=== PATIENT | female | born 2005 | race Two or more races ===

== ENCOUNTER 2024-10-23 21:56 | Inpatient (IN) ==
--- NOTE | 2024-10-23 22:50 | Emergency Department Note ---
Impression & Plan Leukocytosis Admission ED Provider Note HPI: History obtained from patient. The patient is a 18-year-old female with no stated past medical history, presents the emergency department with a chief complaint of left upper back pain, sore throat, chills, and shortness of breath. Patient states that the symptoms happened acutely about 4 hours prior to arrival to the ED. patient states that she also had some urinary "pressure" this morning. Patient states she has some pain in her lower back. Patient states she also has some pain in the area of the left upper back between the thoracic spine and the left scapula. Patient states at times she feels that she cannot take a full breath. On arrival here to the ED the patient is tachycardic but otherwise hemodynamically stable, she is saturating well on room air on arrival. ROS: - Per HPI Differential Diagnosis: Urinary tract infection, pyelonephritis, cystitis, pulmonary embolism, costochondritis, pneumothorax, pneumonia, viral upper respiratory infection, strep pharyngitis, amongst other potential pathologies. *Outpatient medications and allergy history reviewed. PE: General: Alert HEENT: Normocephalic, trachea midline, posterior pharynx is erythematous without any exudate or tonsillar swelling Eyes: Extraocular eye movement is intact, no scleral erythema Pulmonary: Clear to auscultation bilaterally, no wheezing Cardio: Tachycardic rate with regular rhythm GI: Abdomen is soft to palpation : No suprapubic tenderness MSK: No evidence of trauma or malformation of the extremities, no edema Skin: No evidence of rash Neuro: Alert, no focal deficits Psychiatric: Cooperative INDEPENDENT INTERPRETATIONS: information systems technician: (As interpreted by myself): - An order was placed for continuous cardiac monitoring - Patient was noted to be in sinus rhythm with a rate of 120 EKG: (As interpreted by myself): Rate: 124 Rhythm: Sinus tachycardia Intervals: Within normal limits ST changes: No ST elevation Time: 2258 Chest x-ray: (As interpreted by myself): No focal infiltrate Interventions provided in ED: -IV fluid bolus, IV Toradol, IV morphine, IV Zofran, potassium chloride Medical Decision Making: IV was established and lab work obtained, patient was placed on safety inspector. Patient was given IV fluid bolus as well as IV analgesia. Lab work shows a leukocytosis of 16.83, hemoglobin is normal, platelet count is normal, D-dimer was obtained that is within normal limits. CMP shows hypokalemia 3.2, bilirubin is mildly elevated at 1.4 without any transaminitis, troponin is negative, lipase is normal. Urinalysis shows trace ketones and mild hematuria with some epithelial cells. There is no obvious evidence of infection. Viral panel testing was obtained and is negative. [place] testing is negative, strep testing is negative. Chest x-ray does not show any evidence of focal infiltrate per my interpretation however radiology interpretation does suggest bronchitis with possibly pneumonitis. Her tachycardia did downtrend here in the ED with IV fluids and analgesia. On my reassessment the patient states that the pain in her low back was bothering her more throughout the afternoon, following our discussion and CT imaging of the abdomen pelvis was ordered and obtained. This does not show any acute/critical findings. On reassessment following CT imaging results, the patient states that her lower back discomfort is worse and she is having some myalgias. Patient remains tachycardic now in the 110s. Given her recurrent symptoms and unclear source for her symptoms, blood cultures were drawn and the patient was treated with IV cefepime and IV azithromycin. Patient was given a dose of IV Tylenol. At this time I do feel the patient would benefit from admission for further workup and follow-up on blood cultures and urine culture. Patient is in agreement to this plan as is her mother at the bedside. I discussed the patient's presentation with the on-call hospitalist, Dr. Girard, and the patient was placed for admission in stable condition. Consultants/Discussions held with other healthcare providers: -Hospitalist, Dr. Girard Disposition discussion held by myself with: -Patient and patient's mother at the bedside Diagnosis: 1. Leukocytosis, acute 2. Sinus tachycardia 3. Lower back pain, acute 4. Dyspnea, acute 5. Pneumonitis/bronchitis, acute Disposition: Admission Arash Gutierrez DO Emergency Medicine Past Med/Surg History Problem List (Updated 10/24/24 @ 02:57 by Arash Gutierrez DO) Leukocytosis (Acute) Social History Smoking Status: Never smoker Tobacco Type: E-cigarettes / Vaping Preferred Language: Estonian Feels Safe at Home: Yes Results & Data (ED) Vital Signs Vital Signs - 24 hr 10/23/24 22:00 10/23/24 23:00 10/23/24 23:17 Temperature 37.5 C Temperature Source Oral Pulse Rate 137 H 120 H 125 H Pulse Rate [Right Finger] Respiratory Rate 16 16 Respiratory Effort / Characteristics Non-Labored Spontaneous Respiratory Depth Normal Respiratory Pattern Blood Pressure 146/82 H Blood Pressure [Right Arm] Blood Pressure Mean 103 Blood Pressure Mean [Right Arm] Pulse Oximetry 99 99 Oxygen Delivery Method Room Air Room Air Sepsis Recent Fever Within 48 Hours No Sepsis New/Unexplained Change in Mental Status No Sepsis Action Taken by Nursing No Action Required 10/23/24 23:25 10/24/24 00:00 10/24/24 02:08 Temperature 36.8 C Temperature Source Oral Pulse Rate Pulse Rate [Right Finger] 115 H 126 H 108 H Respiratory Rate 21 16 17 Respiratory Effort / Characteristics Non-Labored Spontaneous Non-Labored Spontaneous Respiratory Depth Normal Normal Respiratory Pattern Regular Blood Pressure Blood Pressure [Right Arm] 166/96 H 138/93 119/75 Blood Pressure Mean Blood Pressure Mean [Right Arm] 119 108 89 Pulse Oximetry 100 98 98 Oxygen Delivery Method Room Air Room Air Room Air Sepsis Recent Fever Within 48 Hours Sepsis New/Unexplained Change in Mental Status Sepsis Action Taken by Nursing Laboratory Data 10/23/24 23:01 10/23/24 23:01 Lab Results 10/23/24 10/23/24 Range/Units 23:01 Unknown WBC 16.83 H (4.8-10.8) K/ul RBC 5.17 (4.20-5.40) M/uL Hgb 12.7 (12.0-16.0) g/dl Hct 41.0 (37.0-47.0) % MCV 79.3 L (80.0-100.0) fL MCH 24.6 L (25.0-34.0) pg MCHC 31.0 L (32.0-36.0) g/dL RDW Std Deviation 47.9 H (36.4-46.3) fL RDW Coeff of Jorge 16.8 H (11.5-14.5) % Plt Count 282 (130-400) K/uL MPV 9.7 (9.4-12.4) fL Immature Gran % (Auto) 0.4 % Neut % (Auto) 90.2 % Lymph % (Auto) 3.7 % [place] % (Auto) 5.2 % Eos % (Auto) 0.3 % Baso % (Auto) 0.2 % Neut # (Auto) 15.18 H (1.40-6.50) K/uL Lymph # (Auto) 0.63 L (1.20-3.40) K/uL [place] # (Auto) 0.87 H (0.11-0.59) K/uL Eos # (Auto) 0.05 (0.00-0.50) K/uL Baso # (Auto) 0.03 (0.00-0.20) K/uL Immature Gran # (Auto) 0.07 (0.01-0.20) K/uL Polychromasia 1+ Ovalocytes 2+ PT 10.5 (9.0-12.0) Seconds INR 1.0 (0.9-1.1) D-Dimer 240 (0-500) ug/L FEU Sodium 138 (136-145) mmol/L Potassium 3.2 L (3.5-5.1) mmol/L Chloride 106 (98-107) mmol/L Carbon Dioxide 25 (21-32) mmol/L Anion Gap 7 (3-11) BUN 11 (6-23) mg/dl Creatinine 0.84 (0.6-1.2) mg/dl Est Cr Clr Drug Dosing 112.5 ml/min eGFR 101.96 BUN/Creatinine Ratio 13.1 (10-20) Glucose 116 H (70-99(Fasting)) mg/dl Calcium 9.7 (8.6-10.3) mg/dl Total Bilirubin 1.4 H (0.2-1.0) mg/dl AST 19 (13-39) U/L ALT 16 (7-52) U/L Alkaline Phosphatase 82 (34-104) U/L Troponin I High Sens 3.8 (0-14) pg/ml Total Protein 8.0 (6.0-8.3) gm/dl Albumin 4.8 (3.4-5.0) gm/dl Globulin 3.2 (2.5-4.0) gm/dl Albumin/Globulin Ratio 1.5 (0.9-2) Lipase 23 (11-82) U/L Urine Color Yellow Urine Appearance Clear (Clear) Urine pH 8.5 H (4.5-7.5) Ur Specific [place] 1.029 (1.000-1.030) Urine Protein Trace H (Negative) Urine Glucose (UA) Negative (Negative) Urine Ketones Trace H (Negative) Urine Blood Negative (Negative) Urine Nitrite Negative (Negative) Urine Bilirubin Negative (Negative) Urine Urobilinogen Positive H (Negative) Ur Leukocyte Esterase Negative (Negative) Urine WBC (Auto) 0-5 (0-5) /hpf Urine RBC (Auto) 3-5 H (0-2) /hpf U Hyaline Cast (Auto) 0-2 (0-2) /lpf U Epithel Cells (Auto) 3-5 H (0-2) /hpf Urine Bacteria (Auto) None Seen (None Seen) Urine Test Negative (Negative) Adenovirus (PCR) Not Detected (NotDetected) B. pertussis DNA (PCR) Not Detected (NotDetected) B.parapertussis DNA PCR Not Detected (NotDetected) C. pneumoniae DNA (PCR) Not Detected (NotDetected) Coronavirus OC43 (PCR) Not Detected (NotDetected) Coronavirus HKU1 (PCR) Not Detected (NotDetected) Coronavirus 229E (PCR) Not Detected (NotDetected) SARS-CoV-2 (PCR) Not Detected (NotDetected) Coronavirus NL63 (PCR) Not Detected (NotDetected) Monoscreen Negative (Negative) Human Metapneumovir PCR Not Detected (NotDetected) Influenza Type A (PCR) Not Detected (NotDetected) Influenza Type B (PCR) Not Detected (NotDetected) M. pneumoniae (PCR) Not Detected (NotDetected) Parainfluenza 1 (PCR) Not Detected (NotDetected) Parainfluenza 2 (PCR) Not Detected (NotDetected) Parainfluenza 3 (PCR) Not Detected (NotDetected) Parainfluenza 4 (PCR) Not Detected (NotDetected) RSV (PCR) Not Detected (NotDetected) Entero/Rhino (PCR) Not Detected (NotDetected) Group A Strep (PCR) NOT DETECTED (NotDetected) Administered Medications Discontinued Medications Sodium Chloride (Nss) 1,000 mls @ 999 mls/hr IV .Q1H1M ONE Stop: 10/23/24 23:47 Last Infusion: 10/23/24 23:58 Dose: Infused Documented By: Admin: 10/23/24 23:04 Dose: 999 mls/hr Documented By: MARKELL Sodium Chloride (Nss) 500 mls @ 999 mls/hr IV .Q31M ONE Stop: 10/24/24 00:23 Last Infusion: 10/24/24 00:58 Dose: Infused Documented By: Admin: 10/24/24 00:11 Dose: 999 mls/hr Documented By: MARKELL Ioversol (Optiray 320 100ml) 92 ml IV ONCE ONE Stop: 10/24/24 01:09 Last Admin: 10/24/24 01:09 Dose: 92 ml Documented By: HERVE Ketorolac Tromethamine (Ketorolac Tromethamine 15 Mg/Ml Vial) 10 mg IV NOW ONE Stop: 10/23/24 22:50 Last Admin: 10/23/24 23:04 Dose: 10 mg Documented By: MARKELL Morphine Sulfate (Morphine Sulfate 4 Mg/Ml 1 Ml Carp\\Vial) 4 mg IV NOW STA Stop: 10/24/24 00:04 Last Admin: 10/24/24 00:11 Dose: 4 mg Documented By: MARKELL Ondansetron HCl (Ondansetron Inj 2 Mg/Ml 2 Ml Vial) 4 mg IV NOW STA Stop: 10/24/24 00:04 Last Admin: 10/24/24 00:10 Dose: 4 mg Documented By: MARKELL Potassium Chloride (Potassium Chloride Crtab 20 Meq Tabcr) 40 meq PO NOW STA Stop: 10/24/24 00:05 Last Admin: 10/24/24 00:11 Dose: 40 meq Documented By: MARKELL Imaging Data Radiologist's Impression: Chest X-Ray 10/23/24 22:48 Exam(s): XR CXR 1 VIEW EXAM: XR Chest, 1 View CLINICAL HISTORY: Reason for exam: Chest pain, nonspecific. TECHNIQUE: Frontal view of the chest. COMPARISON: No relevant prior studies available. FINDINGS: Lungs: There is mild to moderate peribronchial thickening of the central bronchi with increased interstitial opacities. No consolidation. Pleural space: Unremarkable. No pneumothorax. Heart: Unremarkable. No cardiomegaly. Mediastinum: Unremarkable. Normal mediastinal contour. Bones/joints: Unremarkable. No acute fracture. IMPRESSION: Findings concerning for bronchitis with pneumonitis, which may be infectious or inflammatory etiologies. No consolidation or pleural effusion. Electronically signed by: Aaliyah Swann MD 10/24/24 02:33 AM Abdomen/Pelvis CT 10/24/24 00:52 EXAM: CT abd pelvis IV con only CLINICAL HISTORY: Lower back pain, urinary pressure pt denies preg 92 cc opti 320 TECHNIQUE: Contiguous axial images were obtained from the level of the diaphragm to the pubic symphysis with intravenous contrast . Coronal and sagittal reconstructions were likewise performed and indicated to increase the sensitivity for detecting clinically relevant pathology. If IV contrast material had not been administered, the likelihood of detecting abnormalities relevant to the patient's condition would have been substantially decreased. CT scan was performed according to ALARA (as low as reasonable achievable). COMPARISON: No comparison study FINDINGS: The visualized lung bases are clear. The liver is normal in size and attenuation. No focal liver lesions are seen. There is no intra or extrahepatic biliary ductal dilatation. Hepatic vasculature is patent. The gallbladder is present. The spleen, pancreas, and adrenal glands are unremarkable. The kidneys are normal in size and attenuation. There is no hydronephrosis or perinephric fat stranding. No renal calculi or renal masses are identified. The ureters are normal in caliber and no ureteral calculi are seen. The bladder is normal in contour. Pelvic viscera are unremarkable.Intrauterine contraceptive device in situ. No focal or diffuse bowel wall thickening or evidence of bowel obstruction is identified. The appendix is visualized in the right lower quadrant and appears within normal limits. Abdominal and pelvic vasculature is patent. No adenopathy or fluid collections are seen. No aggressive appearing osseous lesions are identified. IMPRESSION: 1.No acute abnnormality in the present study. Electronically signed by Reinier Pires 10-24-2024 02:36 AM Discharge Plan Visit Data Chief Complaint: Flu Like Symptoms Stated Complaint: SORE THROAT, CHILLS, FEVER, BACK PAIN ED Provider: Arash Gutierrez Discharge Problem: Leukocytosis Forms Stand Alone Forms: My [facility] Referrals Referrals: Patti Hanley, [Primary Care Provider] -
[2024-10-23] MEDS: KETOROLAC TROMETHAMINE 15 MG/ML VIAL IV ONE (23:04)
[2024-10-23] MEDS: SODIUM CHLORIDE 0.9% 1,000 ML IV ONE (23:04)
[2024-10-23 23:23] LABS: Hemoglobin 12.7 g/dl (12.0-16.0); Mean Corpuscular Hemoglobin 24.6 pg (25.0-34.0); Mean Corpuscular Volume 79.3 fL (80.0-100.0); Mean Platelet Volume 9.7 fL (9.4-12.4); Platelet Count 282 K/uL (130-400); RDW Coefficient of Variation 16.8 % (11.5-14.5); RDW Standard Deviation 47.9 fL (36.4-46.3); Red Blood Count 5.17 M/uL (4.20-5.40); White Blood Count 16.83 K/ul (4.8-10.8)
[2024-10-23 23:27] LABS: Appearance Urine Clear (Clear); Bacteria Urine Automated None Seen (None Seen); Bilirubin Urine Negative (Negative); Blood Urine Negative (Negative); Cast Urine Automated 0-2 /lpf (0-2); Color Urine Yellow; Glucose Urine UA Negative (Negative); Ketones Urine Trace (Negative); Leukocyte Esterase Urine Negative (Negative); Nitrite Urine Negative (Negative); Protein Urine Trace (Negative); Specific Gravity Urine 1.029 (1.000-1.030); Urobilinogen Urine Positive (Negative); WBC Urine Automated 0-5 /hpf (0-5); pH Urine 8.5 (4.5-7.5)
[2024-10-23 23:28] LABS: Adenovirus PCR Not Detected (NotDetected); Bordetella parapertussis PCR Not Detected (NotDetected); Bordetella pertussis PCR Not Detected (NotDetected); Chlamydia pneumoniae PCR Not Detected (NotDetected); Coronavirus 229E PCR Not Detected (NotDetected); Coronavirus CoV-2 (COVID19)PCR Not Detected (NotDetected); Coronavirus HKU1 PCR Not Detected (NotDetected); Coronavirus NL63 PCR Not Detected (NotDetected); Coronavirus OC43PCR Not Detected (NotDetected); Human Metapneumovirus PCR Not Detected (NotDetected); Influenza A PCR Not Detected (NotDetected); Influenza B PCR Not Detected (NotDetected); Mycoplasma pneumoniae PCR Not Detected (NotDetected); Parainfluenza Virus 1 PCR Not Detected (NotDetected); Parainfluenza Virus 2 PCR Not Detected (NotDetected); Parainfluenza Virus 3 PCR Not Detected (NotDetected); Parainfluenza Virus 4 PCR Not Detected (NotDetected); Respiratory Syncytial VirusPCR Not Detected (NotDetected); Rhinovirus/Enterovirus PCR Not Detected (NotDetected)
[2024-10-23 23:29] LABS: Pregnancy Test, Urine Negative (Negative)
[2024-10-23 23:41] LABS: Alanine Aminotransferase 16 U/L (7-52); Albumin Globulin Ratio 1.5 (0.9-2); Albumin Level 4.8 gm/dl (3.4-5.0); Alkaline Phosphatase 82 U/L (34-104); Anion Gap 7 (3-11); Aspartate Aminotransferase 19 U/L (13-39); BUN Creatinine Ratio 13.1 (10-20); Bilirubin,Total 1.4 mg/dl (0.2-1.0); Blood Urea Nitrogen 11 mg/dl (6-23); Calcium 9.7 mg/dl (8.6-10.3); Carbon Dioxide 25 mmol/L (21-32); Chloride 106 mmol/L (98-107); Creatinine Clr Calc Pharmacy 112.5 ml/min; Globulin 3.2 gm/dl (2.5-4.0); Glucose 116 mg/dl (70-99(Fasting)); Lipase 23 U/L (11-82); Potassium 3.2 mmol/L (3.5-5.1); Sodium 138 mmol/L (136-145)
[2024-10-23 23:47] LABS: Troponin I High Sensitivity 3.8 pg/ml (0-14)
[2024-10-23 23:51] LABS: Basophils # (auto) 0.03 K/uL (0.00-0.20); Basophils % (auto) 0.2 %; Eosinophils # (auto) 0.05 K/uL (0.00-0.50); Eosinophils % (auto) 0.3 %; Immature Granulocytes # (auto) 0.07 K/uL (0.01-0.20); Immature Granulocytes % (auto) 0.4 %; Lymphocytes # (auto) 0.63 K/uL (1.20-3.40); Lymphocytes % (auto) 3.7 %; Monocytes # (auto) 0.87 K/uL (0.11-0.59); Monocytes % (auto) 5.2 %; Neutrophils # (auto) 15.18 K/uL (1.40-6.50); Neutrophils % (auto) 90.2 %; Ovalocytes 2+; Polychromasia 1+
[2024-10-23 23:58] LABS: D Dimer 240 ug/L FEU (0-500); Prothrombin Time 10.5 Seconds (9.0-12.0)
[2024-10-24] MEDS: ONDANSETRON INJ 2 MG/ML 2 ML VIAL IV STA (00:10)
[2024-10-24] MEDS: POTASSIUM CHLORIDE CRTAB 20 MEQ TABCR PO STA (00:11)
[2024-10-24] MEDS: SODIUM CHLORIDE 0.9% 500 ML IV ONE (00:11)
[2024-10-24] MEDS: MoRPHine SULFATE 4 MG/ML 1 ML CARP\\VIAL IV STA (00:11)
[2024-10-24] MEDS: OPTIRAY 320 100ml IV ONE (01:09)
--- NOTE | 2024-10-24 02:34 | XRay Report ---
Exam(s): XR CXR 1 VIEW EXAM: XR Chest, 1 View CLINICAL HISTORY: Reason for exam: Chest pain, nonspecific. TECHNIQUE: Frontal view of the chest. COMPARISON: No relevant prior studies available. FINDINGS: Lungs: There is mild to moderate peribronchial thickening of the central bronchi with increased interstitial opacities. No consolidation. Pleural space: Unremarkable. No pneumothorax. Heart: Unremarkable. No cardiomegaly. Mediastinum: Unremarkable. Normal mediastinal contour. Bones/joints: Unremarkable. No acute fracture. IMPRESSION: Findings concerning for bronchitis with pneumonitis, which may be infectious or inflammatory etiologies. No consolidation or pleural effusion. Electronically signed by: Aailyah Swann MD 10/24/24 02:33 AM
--- NOTE | 2024-10-24 02:36 | CT Scan Report ---
EXAM: CT abd pelvis IV con only CLINICAL HISTORY: Lower back pain, urinary pressure pt denies preg 92 cc opti 320 TECHNIQUE: Contiguous axial images were obtained from the level of the diaphragm to the pubic symphysis with intravenous contrast . Coronal and sagittal reconstructions were likewise performed and indicated to increase the sensitivity for detecting clinically relevant pathology. If IV contrast material had not been administered, the likelihood of detecting abnormalities relevant to the patient's condition would have been substantially decreased. CT scan was performed according to ALARA (as low as reasonable achievable). COMPARISON: No comparison study FINDINGS: The visualized lung bases are clear. The liver is normal in size and attenuation. No focal liver lesions are seen. There is no intra or extrahepatic biliary ductal dilatation. Hepatic vasculature is patent. The gallbladder is present. The spleen, pancreas, and adrenal glands are unremarkable. The kidneys are normal in size and attenuation. There is no hydronephrosis or perinephric fat stranding. No renal calculi or renal masses are identified. The ureters are normal in caliber and no ureteral calculi are seen. The bladder is normal in contour. Pelvic viscera are unremarkable.Intrauterine contraceptive device in situ. No focal or diffuse bowel wall thickening or evidence of bowel obstruction is identified. The appendix is visualized in the right lower quadrant and appears within normal limits. Abdominal and pelvic vasculature is patent. No adenopathy or fluid collections are seen. No aggressive appearing osseous lesions are identified. IMPRESSION: 1.No acute abnnormality in the present study. Electronically signed by Reinier Pires 10-24-2024 02:36 AM
[2024-10-24] MEDS ORDERED: AZITHROMYCIN 500 MG VIAL IV ONE (02:43)
--- NOTE | 2024-10-24 02:57 | History & Physical Report ---
Date of Service October 24, 2024 Assessment & Plan (1) Sepsis: Plan: -Fever prior to coming into the ED, has been 37.5 in the ED. Patient with shortness of breath, achiness, chills, sore throat, heachache. -Tachycardic, mild hypotension, leukocytosis of 16. EKG showing sinus tach. -Tick panel negative so far though still pending. -Respiratory BioFire negative. Troponin negative. LDH normal. -Porter negative. -Pro-Kane negative, lipase negative, CMP unremarkable besides bilirubin 1.4 and a potassium of 3.2 -CRP negative. -EBV pending. Peripheral smear pending. -Pro-Kane negative. -CT abdomen pelvis negative. -Checks x-ray concerning for bronchitis with pneumonitis which may be source of infection though cannot rule out other etiologies. -Patient was admitted early overnight, will get repeat labs at 10 AM. Will add on lactate at that time. -UA showed trace proteins, trace ketones, and positive for urobilinogen -Blood and urine cultures pending. -Patient is septic with unknown etiology at this time. Received 2.5 L total of fluids in the ED and at time of admission. -Negative brudzinski, though given significant headache may consider meningitis on differential. -Will keep n.p.o. at this time. -Will start on broad-spectrum antibiotics with cefepime and doxycycline. Will follow culture though may be viral in nature. (2) Pneumonitis: Plan: -Chest x-ray concerning for bronchitis with pneumonitis. -Will treat as above. Plan Fluids: 2.5 L NSS given. Nutrition: N.p.o. Code status: Full code DVT ppx: Low risk may consider if extended hospital stay Dispo: PCU/telemetry History of Present Illness Chief Complaint: Leukocytosis, back pain, pneumonitis Primary Care Provider: Patti Hanley DO Patient is a 18-year-old female with no significant past medical history who presents to the hospital with back pain, sore throat, chills, shortness of breath, fever, achiness. Patient states that the symptoms started approximately 6 to 7 PM and came on all of a sudden. Patient states that the pain started with her back. The pain is over her bilateral lower back more so on the left than right. She then started to have a fever and chills and pain all over. She then developed a headache and felt like pressure behind her eyes. Denies any cough. Does state that she also has a sore throat that is very mild. She also states that her lips feel funny. Denies any recent travel or exposure to infectious etiology. Denies IV drug use. Denies any rash. Allergies Allergy/AdvReac Type Severity Reaction Status Date / Time Penicillins AdvReac Rash Verified 10/24/24 03:08 Past Med/Surg History Problem List (Updated 10/24/24 @ 05:40 by Hitesh Mercado DO) Sepsis Pneumonitis Leukocytosis (Acute) Social History Smoking Status: Current every day smoker Tobacco Type: E-cigarettes / Vaping Hx Alcohol Use: No Hx Substance Use: No Preferred Language: Turkmen Communication Ability: Effective Plaster Foreman Required: No Beliefs That Will Affect Care: None Current Living Situation: Family Current Living Situation Comment: Lives with family in home Feels Safe at Home: Yes Safety Concerns: Feels Safe At This Time Assistive Devices: None Review of Systems Review of Systems: All systems reviewed & are unremarkable except as noted in Subjective Physical Exam Physical Exam: Constitutional: well-appearing, moderate acute distress HEENT: NCAT, no conjunctival injection, posterior pharynx slightly erythematous without exudate CV: regular rhythm, no murmur appreciated, extremities well-perfused, no LE edema Resp: CTABL, no wheezes/rales/rhonchi appreciated, no increased work of breathing GI: soft, nondistended, nontender, BS normoactive MSK: Bilateral lower back tenderness, no midline tenderness,negative brudzinski Skin: warm, dry, no rash appreciated Neuro: alert, oriented, no focal neurologic deficit appreciated Results & Data Results & Data Vital Signs (Past 12 Hours) Vital Signs Temp Pulse Pulse Resp BP BP Pulse Ox 10/24/24 02:08 36.8 C 108 H 17 119/75 98 10/24/24 00:00 126 H 16 138/93 98 10/23/24 23:25 115 H 21 166/96 H 100 10/23/24 23:17 125 H 10/23/24 23:00 120 H 16 99 10/23/24 22:00 37.5 C 137 H 16 146/82 H 99 O2 Del Method 10/24/24 02:08 Room Air 10/24/24 00:00 Room Air 12/08/24 23:25 Room Air 10/23/24 23:17 10/23/24 23:00 Room Air 10/23/24 22:00 Room Air Supervising Physician Co-Signing Physician Notes Patient seen and examined, chart reviewed, case discussed with Dr. Mercado and I agree with the assessment and plan as above. 18yo female with sepsis, unknown source. Patient had abrupt onset of symptoms Ill in appearance, NAD Skin - no rash HEENT - MMM, Neck supple Heart - +S1/S2, regular, tachycardic Lungs - CTA Abd - +BS, soft, NT/ND Ext - warm, well perfused Labs and images reviewed Assessment/Plan Sepsis, source unclear. Patient has received appropriate sepsis fluid amount Cultures sent Broad spectrum antibiotics Remainder as above
[2024-10-24] MEDS: ACETAMINOPHEN 1,000 MG/100 ML VIAL IV STA (03:45)
[2024-10-24] MEDS: Patient's ALLERGY Info needs ENTERED STA (03:45)
[2024-10-24] MEDS: CEFDINIR 300 MG CAP PO STA (03:53)
[2024-10-24] MEDS: CEFEPIME 1000MG 1,000 MG/10 ML SYR IV STA ×3 (03:53→04:45)
[2024-10-24] MEDS: AZITHROMYCIN 250 MG TAB PO ONE (03:53)
[2024-10-24 04:01] LABS: C Reactive Protein < 0.50 mg/dl (0-0.5)
[2024-10-24] MEDS ORDERED: CEFEPIME 1000MG 1,000 MG/10 ML SYR IV STA (04:05)
[2024-10-24] MEDS: SODIUM CHLORIDE 0.9% 1,000 ML IV ONE (04:16)
[2024-10-24] MEDS: DOXYCYCLINE HYCLATE 100 MG in DEXTROSE 5% MINI-B 100 ML IV STA (04:17)
[2024-10-24] MEDS: AZITHROMYCIN 500 MG in SODIUM CHLORIDE 0.9% 250 ML IV ONE (04:22)
--- NOTE | 2024-10-24 07:27 | Hospitalist Progress Note ---
Date of Service October 24, 2024 Assessment & Plan (1) Sepsis: Plan: Patient is a 18 year old female with no significant PMH who presented to the hospital with back pain, SOB, fever, chills, sore throat, achiness. Sepsis w/ Undetermined Source - Ddx includes viral infection vs bronchitis/pneumonitis vs meningitis At this time, viral infection considered most likely Will continue empiric Abx pending cultures - SIRS + d/t hypotension, tachycardia, and leukocytosis - Procal negative, Lactate negative, MRSA nares negative, culture pending - CXR indicating bronchitis/pneumonitis, CTAP negative - Blood cultures pending - Tick borne illness screenings negative, Biofire negative, [place] screen negative/EBV pending Peripheral smear w/o evidence of anaplasma or Babesia - IVF 2.5 L in ED, restarted 1.5 maintenance in AM 12/9 - Continue broad spectrum Abx w/ Cefepime & Doxycycline - Continue Tylenol and Zofran for symptom control Neck Pain/Headache - No point tenderness in cervical, thoracic, or lumbar spine - Negative meningeal signs - Low suspicion for meningitis at this time, continue to follow Microcytic Anemia - Noted to be 2/2 iron deficiency anemia - Plan for outpatient iron panel/ferritin testing when not acutely ill (2) Pneumonitis: Plan Fluids: 2.5 L NSS given. Nutrition: Clear diet, advance as tolerate Code status: Full code DVT ppx: Low risk may consider if extended hospital stay, encourage ambulation as tolerated Dispo: PCU/telemetry Admission and Anticipated Discharge Date Admission Date: October 24, 2024 Supervising Physician Co-Signing Physician Notes Resident [id number]: Patient with increasing headache, nausea, and neck pain. Kernig and Burzinski signs negative. No TTP of back of neck. Remains intermittently tachycardic and hypotensive. Ongoing Cefepime/Doxy. Blood cultures pending. Added NSS @ 125 ml/hr. MRSA nares ordered. Lactate pending. Provided Tylenol and Zofran. Attending Physician Supervision Note: I saw the patient with Jens Ruffin and independently interviewed and examined the patient and verified the harris history and physical, reviewed labs and image studies and agree with findings and care plan noted above. continued to feel achy and warm. no fever since admission. no chest pain, shortness of breath. AAOx3, Neck supple, CTA, RRR, abdomen - soft/ND/ND. No obvious focal deficit. Probable sepsis/SIRS - WBC elevated. neg procal and lactate. neg viral panel, peripheral smear, strep test. cultures pending. CXR with some infiltrate. Neg CT A/P -continue empiric abx treatment. Subjective Patient is a 18 year old female with no significant PMH who presented to the [facility] with back pain, SOB, fever, chills, sore throat, achiness. She states that her symptoms began on Thursday (10/23/24) and within 30-60 minutes, she got super sick with chills, pain throughout body and especially lower back. She states the back pain was a . She states no sick contacts, no recent travel, no recent insect or tick bites. She reports no back/neck pain at this time (8:00am). She is no longer feeling feverish. She denies URI symptoms, SOB, chest pain. Note: Resident Physician reports increasing head and neck pain at time of her rounds. This was absent at 8:00am. Review of Systems Review of Systems: Constitutional: Denies, fever, chills, fatigue, malaise, sudden weight changes HEENT: Denies headaches, eye pain, vision loss, double vision, blurry vision, ear pain, hearing loss, nasal discharge, trouble swallowing, sinus pain, sore throat Respiratory: Denies SOB, cough, sputum production, hemoptysis, pleuritic chest pain Cardio: Denies chest pain, palpitations, tachycardia, bradycardia, edema GI: Denies abdominal tenderness, constipation, diarrhea, hematochezia : Denies dysuria, hematuria, frequency, incontinence, or urgency MSK: Denies muscle or joint pain, stiffness, or weakness. States she is not having any back pain or neck pain at this time. Integumentary: Denies skin rash, lesions Neurologic: Denies altered mental status, gait disturbances, numbness or tingling Physical Exam Constitutional: Well appearing, NAD Eyes: PERRLA, sclera anicteric ENMT: Oralpharynx slightly erythematous without exudate. Tympanic membranes intact. Neck: Neck is supple, no thyromegaly or lymphadenopathy appreciated. Full ROM at neck. Respiratory: Lungs CTAB without wheezes, rales, rhonchi. Symmetrical chest rise Cardiovascular: Heart RRR without murmur, rubs, gallops. Gastrointestinal (Abdomen): Abdomen soft, nontender, nondistended. No hepatosplenomegaly appreciated. Musculoskeletal: Spinous process non-tender upon palpation. Paraspinous nontender. No CVA tenderness. Full ROM in neck without pain. Skin: No rashes or lesions appreciated Neurologic: Alert and oriented, no focal neurologic deficits appreciated, CN grossly intact. Psychiatric: Appropriate mood and affect. Results & Data Results & Data Vital Signs (Past 12 Hours) Vital Signs Temp Pulse Pulse Resp BP BP Pulse Ox 10/24/24 07:01 90 20 106/58 L 97 10/24/24 06:39 37.5 C 93 H 20 81/53 L 96 10/24/24 05:19 37.3 C 106 H 19 106/59 L 98 10/24/24 05:19 110 H 18 106/59 L 98 10/24/24 05:19 10/24/24 05:03 105 H 18 106/59 L 97 10/24/24 03:03 114 H 10/24/24 02:08 36.8 C 108 H 17 119/75 98 10/24/24 00:00 126 H 16 138/93 98 10/23/24 23:25 115 H 21 166/96 H 100 10/23/24 23:17 125 H 10/23/24 23:00 120 H 16 99 10/23/24 22:00 37.5 C 137 H 16 146/82 H 99 Pulse Ox O2 Del Method O2 Del Method 10/24/24 07:01 Room Air 10/24/24 06:39 Room Air 10/24/24 05:19 Room Air 10/24/24 05:19 Room Air 10/24/24 05:19 98 Room Air 10/24/24 05:03 Room Air 10/24/24 03:03 10/24/24 02:08 Room Air 10/24/24 00:00 Room Air 10/23/24 23:25 Room Air 10/23/24 23:17 10/23/24 23:00 Room Air 10/23/24 22:00 Room Air Resident Activity Tracking Resident Involvement: Resident Care Provided Care Provided: Adult Hospital Medicine
--- OUTSIDE RECORDS SUMMARY | 2024-10-24 08:16 | External Medical Summary | Summary of Care ---
Author Name Unknown Organization [facility] Address [address] [place] [address] Phone [phone] Care Team Providers Care Trade Show Manager Name Role Phone Unavailable Primary Care Provider Unavailabl e Reason for Visit * Reason Comments PPD Skin Test Encounter Details Date Type Department Care Team (Late st Contact Info) Description 08/03/2024 10:20 AM EDT Nurse Only Ancillary [address], [place] [address] [place] [address] [place], Nurse [facility] [address] [place] [address] PPD Skin Test Allergies Active Allergy Reactions Criticality Noted Date Comments Dust 07/25/2024 Penicillin G 10/27/2017 hives documented as of this encounter (statuses as of 08/03/2024) Medications Medication Sig Dispensed Refills Start Date End Date Status Albuterol Sulfate 108 (90 Base) MCG/ACT Inhalation Aerosol Powder Breath ActivatedIndications: Exercise-induced asthma Inhale 2 Puffs by mouth every 6 hours as needed for Shortness of Breath or Wheezing. 1 Each 3 08/03/2024 Active Mirena (52 MG) 20 MCG/DAY Intrauterine Intrauterine Device (Levonorgestrel) Insert 1 Each into uterus once. Active Albuterol Sulfate 108 (90 Base) MCG/ACT Inhalation Aerosol Powder Breath ActivatedIndications: Exercise-induced asthma Inhale 2 Puffs by mouth every 6 hours as needed for Shortness of Breath or Wheezing. 1 Each 3 07/25/2024 Active hydrOXYzine HCl 25 MG Oral TabletIndications:CAMILA (generalized anxiety disorder),Grief reaction Take 1 Tablet by mouth 3 times a day as needed for Anxiety. 20 Tablet 1 07/25/2024 Active Sertraline HCl 25 MG Oral Tablet (Zoloft) Take 1 Tablet by mouth in the morning. 30 Tablet 1 07/25/2024 Active Azithromycin 250 MG Oral Tablet (Zithromax Z-[place]) Take two tablets by mouth on first day, then 1 tablet daily until gone 6 Tablet 07/25/2024 Active documented as of this encounter (statuses as of 08/03/2024) Active Problems Problem Noted Date Diagnosed Date Abnormal uterine bleeding (AUB) 11/02/2023 Moderate episode of recurrent major depressive d isorder 04/19/2021 CAMILA (generalized anxiety disorder) 11/18/2018 Mild scoliosis 10/27/2017 Exercise-induced asthma documented as of this encounter (statuses as of 08/03/2024) Resolved Problems Problem Noted Date Diagnosed Date Resolved Date Obesity due to excess calori es without serious comorbidity with body mass index (BMI) in 95th to 98th percentile for age in pediatric patient 10/27/2017 07/15/2019 Bronchospasm, exercise-induced 10/27/2017 10/27/2017 documented as of this encounter (statuses as of 08/03/2024) Immunizations Name Administration Dates Next Due DTaP Dipth/Tet/Acell Pertussis (Infanrix), Peds 08/25/2005,07/02/2004,04/30/2004,02/19 HEPATITIS B VACCINE, RECOMB, 20 MCG/ML, ADULT (HEPLISAV-B) 08/03/2024 HIB PRP-OMP, 3 dose (Pedvax) 01/09/2005,04/30/20 04,02/20/2004 Hepatitis A, Ped/Adol., 18 y ear and below, 2-Dose 04/18/2008,03/22/2007 Hepatitis B, 0-19 yrs 04/30/2005, 005,02/20/2004,12/14 IPV - Polio Virus Vaccine (Inact) 2016,09/27/2004,04/30/2004,02/19 MMR - Measles/Mumps/Rubella Vaccine 06/16/2009,0 01/09/2005 Meningococcal B, 2/3-Dose Se ajith (TRUMENBA) 01/12/2020 Meningococcal Conjugate Vacc ine (Menactra/Menveo) 07/13/2017 Meningococcal MCV4O Conjugat e Vaccine (Menveo) 01/12/2020 PPD 08/03/2024,07/25/2024 Pneumococcal Conjugate Vacc, 13 Valent (Prevnar) 01/12/2005,07/02/2004,04/30/2004,02/19 Seasonal Influenza Virus Vac cine, Unspecified Formulation 01/12/2020 Seasonal Influenza, PF, 6 M & above, IM , (FluLaval or Fluzone) 01/12/2020 Seasonal Influenza, Trivalen t, (IIV3), PF, (Fluzone) 08/03/2024 Seasonal Influenza, Trivalen t, (IIV3), with Preserv, (Fluzone) 09/10/2015,09/25/2006,08/25/2005,11/01,09/27/2004 TDAP (age 10 and older)(Boostrix) 09/10/2015 Varicella Vaccine (Chicken Pox) 06/16/2007,01/09 documented as of this encounter Social History Tobacco Use Types Packs/Day Years Used Date Smoking Tobacco: Former Vaporizer Smokeless Tobacco: Never Alcohol Use Standard Drinks/Week Comments No 0 (1 standard drink = 0.6 oz pur e alcohol) PHQ-2 Answer Date Recorded PHQ Adult Total Score 9 07/25/2024 Hunger Vital Sign Answer Date Recorded Within the past 12 months, y ou worried that your food would run out before you got the money to buy more. Never true 10/15/20 23 Within the past 12 months, t he food you bought just didn't last and you didn't have money to get more. Never true 10/15/2023 Childcare Answer Date Recorded Do you feel overwhelmed with taking care of a child, family member or friend? No 10/15/2023 Does your family need help f inding childcare? (Household - for ages 0-17 years) Not on file 10/15/2023 Clothing Answer Date Recorded Have you been unable to get clothing when it was really needed? No 10/15/2023 Is your family able to get c lothes or diapers when needed? (Household - for ages 0-17 years) Not on file 10/15/2023 Personal Safety Answer Date Recorded Do you feel unsafe or have concerns for your saf ety? No 10/15/2023 Do you have concerns for you r family's safety? (Household - for ages 0-17 years) Not on file 10/15/2023 Utilities Answer Date Recorded Do you have trouble paying y our heating, water, or electric bill? No 10/15/2023 Is your family able to pay t he heat, water, or electric bill? (Household - for ages 0-17 years) Not on file 10/15/2023 Does your family have access to good internet? (Household - for ages 0-17 years) Not on file 10/15/2023 Employment Status Answer Date Recorded Are you unemployed or without regular income? No 10/15/2023 Does the household have a [facility] source of income? (Household - for ages 0-17 years) Not on file 10/15/2023 Social Connections Answer Date Recorded How often do you feel lonely or isolated from th ose around you? Rarely 10/15/2023 Financial Resource Strain Answer Date R ecorded Do you have any trouble payi ng for your medications, or do you think you might in the future? No 10/15/2023 Does your family have troubl e paying for medicine? (Household - for ages 0-17 years) Not on file 10/15/2023 Transportation Needs Answer Date Record ed READ ONLY Do you have troubl e getting a ride to medical visits or work? Never True 10/15/2023 Does your family have a hard time getting a ride to doctors visits? (Household - for ages 0-17 years) Not on file 10/15/2023 Has lack of transportation k ept you from medical appointments, meetings, work, or from getting things needed for daily living? Check all that apply. (Adult - for ages 18 years and over) Not on file 10/15/2023 Do you (or your family) have trouble finding or paying for a ride (transportation)? (Household - for ages 0-17 years) Not on file 10/15/2023 Housing Stability Answer Date Recorded Do you currently live in a s helter or have no steady place to sleep at night? No 10/15/2023 READ ONLY Do you think you a re at risk of becoming homeless? No 10/15/2023 Does your family worry about paying for your home or becoming homeless? (Household - for ages 0-17 years) Not on file 1 12/15/2022 Are you homeless or worried that you might be in the future? (Adult - for ages 18 years and over) Not on file Are you (or your family) moiz eless or worried that you might be in the future? (Household - for ages 0-17 years) Not on file Food Insecurity Answer Date Recorded Do you need food for this week? No 10/15/2023 Are you able to get enough f ood for your family? (Household - for ages 0-17 years) Not on file 10/15/2023 Does your family need food t his week? (Household - for ages 0-17 years) Not on file 10/15/2023 Do you always have enough fo od for your family? (Household - for ages 0-17 years) Not on file 10/15/2023 Sex and Gender Information Value Date Recorded Sex Assigned at Female 10/15/2023 7:28 PM EST Gender Identity Female 10/15/2023 7:28 PM EST Sexual Orientation Straight 10/15/2023 7: 28 PM EST Job Start Date Occupation Industry Not on file Not on file Not on file documented as of this encounter Plan of Treatment Upcoming Encounters Date Type Department Care Team (Late st Contact Info) Description 08/03/2024 11:20 AM EDT Immunization Ancillary [address] [place] [address] [facility] [address] [place] [address] Need for vaccination* 08/25/2024 1:00 PM EDT Office Visit Allergy/Immunology [facility] [address] [place] [address] Stoney Brown MD [address] [place] [address] Health Maintenance Due Date Last Done Comments Pneumococcal Vaccine: Pediat rics (0 to 5 Years) and At-Risk Patients (6 to 64 Years) (1 of 1 - PPSV23 or PCV20) 2009 01/12/2005, 07/02/2004, 04/30/2004, Additional history exists HIV Screening 2018 HPV (Gardasil) Vaccine (1 - 3-dose series) 2018 Hepatitis C Screening 2021 Yearly Wellness Visit 07/08/2022 07/08/2021 , 12/01/2019, 11/18/2018, Additional history exists COVID-19 Vaccine ( - 2023-2 5 season) 2024 Gonorrhea / Chlamydia Screen 01/14/202511/2023, 11/19/2023, 03/18/2023, Additional history exists Depression Monitoring 07/25/2025 07/25/2024 DTap/Tdap Vaccines (6 - Td o r Tdap) 09/10/2025 09/10/2015, 08/25/2005, 07/02/2004, Additional history exists MENINGOCOCCAL (MENACTRA/MENVEO) Completed , 07/13/2017 Hepatitis B Vaccine Completed 08/03/2024, 04/30/2005, 01/09/2005, Additional history exists Influenza Vaccine (FLU shot) Completed , 01/12/2020, 01/12/2020, Additional history exists documented as of this encounter Medical Devices Not on filedocumented as of this encounter Visit Diagnoses Diagnosis PPD screening test- Primary Screening examination for pulmonary tuberculosis Need for vaccination- Primary Need for prophylactic vaccination and inoculation against unspecified single disease documented in this encounter
--- OUTSIDE RECORDS SUMMARY | 2024-10-24 08:16 | External Medical Summary | Summary of Care ---
Author Name Unknown Organization [facility] Address [address] [place] [address] Phone [phone] Care Team Providers Care Sample Tailor Name Role Phone Unavailable Primary Care Provider Unavailabl e Reason for Visit * Reason Comments Medication Administration Encounter Details Date Type Department Care Team (Late st Contact Info) Description 08/03/2024 11:20 AM EDT Immunization Ancillary [facility] [address] [place] [address] [place] [place] [address] [place] [address] Need for vaccination* Allergies Active Allergy Reactions Criticality Noted Date [...] daily until gone 6 Tablet 07/25/2024 Active Ondansetron HCl 4 MG Oral Tablet (Zofran) TAKE ONE TABLET BY MOUTH FOUR TIMES A DAY NEEDED FOR NAUSEA 06/27/2024 Active documented as of this encounter (statuses [...] No 10/15/2023 Does the household have a [facility] source [facility] income? (Household - for ages [...] on file documented as of this encounter Progress Notes * Doris Frazier LPN - 08/03/2024 11:02 AM EDT Pre-Administration Time Out Procedure Performed: Yes Patient Identified (Ask Name/Date of ): Yes Does the patient have a fever greater than 101 degrees today? No Patient allergic to latex? No Has the patient ever fainted after receiving an injection? No VFC Stock: No Immunization(s) verified: Yes, Immunization Name: Flu and Heplisav-B (Hepatitis B Vaccine Adult), VIS Sheet(s) given: Yes Verified Side and Site: Yes Verified Shot(s) with Parent(s)/Patient: Yes documented in this encounter Plan of Treatment Upcoming Encounters Date Type Department Care Team (Mildred st Contact Info) Description 08/25/2024 1:00 PM EDT Office Visit Allergy/Immunology [address] [place] [address] [facility] [place] [address] Stoney Brown MD [address] [facility] [place] [address] Health Maintenance Due Date Last Done Comments [...] as of this encounter Visit Diagnoses Diagnosis Need for vaccination- Primary Need for prophylactic vaccination and inoculation against unspecified single disease documented in this encounter
--- OUTSIDE RECORDS SUMMARY | 2024-10-24 08:16 | External Medical Summary ---
Author Name Unknown Address Unknown Organization [facility] [address] [place] [address] Laboratory Report Ordering Provider Test Date Status ZURI ZULUAGA 07/26/2024 11:48:08 Final Observation Date Value Abnormality Reference (Units ) Status Rubeola IgG 07/26/2024 11:48:08 Positive Abnormal Negative Final A positive result is consist ent with having had measles virus (rubeola) or vaccination. Performing Location [facility] [address] [place] [address]
--- OUTSIDE RECORDS SUMMARY | 2024-10-24 08:16 | External Medical Summary | Summary of Care ---
Author Name Unknown Organization [facility] Address [address] [place] [address] Phone [phone] Care Team Providers Care Nematologist Name Role Phone Unavailable Primary Care Provider Unavailabl e Encounter Details Date Type Department Care Team (Late st Contact Info) Description 07/27/2024 Telephone Family Practice [place] [facility] [address] [place] [address] [address] [place] [facility] [address] [facility] [address] Allergies Active Allergy Reactions Criticality Noted Date Comments Dust 07/25/2024 Penicillin G 10/27/2017 hives documented as of this encounter (statuses as of 07/27/2024) Medications Medication Sig Dispensed Refills Start Date End Date Status Mirena (52 MG) 20 MCG/DAY Intrauterine Intrauterine [...] as of this encounter (statuses as of 07/27/2024) Active Problems Problem Noted Date Diagnosed Date Abnormal uterine bleeding (AUB) 11/02/2023 Moderate episode of recurrent major depressive d isorder 04/19/2021 CAMILA (generalized anxiety disorder) 11/18/2018 Mild scoliosis 10/27/2017 Exercise-induced asthma documented as of this encounter (statuses as of 07/27/2024) Resolved Problems Problem Noted Date Diagnosed Date Resolved Date Obesity due to excess calori es without serious comorbidity with body mass index (BMI) in 95th to 98th percentile for age in pediatric patient 10/27/2017 07/15/2019 Bronchospasm, exercise-induced 10/27/2017 10/27/2017 documented as of this encounter (statuses as of 07/27/2024) Immunizations Name Administration Dates Next Due DTaP Dipth/Tet/Acell Pertussis (Infanrix), Peds 08/25/2005,07/02/2004,04/30/2004,02/19 HIB PRP-OMP, 3 dose (Pedvax) 01/09/2005,04/30/20 04,02/20/2004 Hepatitis A, Ped/Adol., 18 y ear and below, 2-Dose 04/18/2008,03/22/2007 Hepatitis B, 0-19 yrs 04/30/2005, 005,02/20/2004,12/14 IPV - Polio Virus Vaccine (Inact) 2016,09/27/2004,04/30/2004,02/19 MMR - Measles/Mumps/Rubella Vaccine 06/16/2009,0 01/09/2005 Meningococcal B, 2/3-Dose Se ajith (TRUMENBA) 01/12/2020 Meningococcal Conjugate Vacc ine (Menactra/Menveo) 07/13/2017 Meningococcal MCV4O Conjugat e Vaccine (Menveo) 01/12/2020 PPD 07/25/2024 Pneumococcal Conjugate Vacc, 13 Valent (Prevnar) 01/12/2005,07/02/2004,04/30/2004,02/19 Seasonal Influenza Virus Vac cine, Unspecified Formulation 01/12/2020 Seasonal Influenza, PF, 6 M & above, IM , (FluLaval or Fluzone) 01/12/2020 Seasonal Influenza, Trivalen t, (IIV3), with Preserv, [...] No 10/15/2023 Does the household have a re gular source of income? (Household - for ages [...] 18 years and over) Not on file 3 Are you (or your family) moiz eless [...] on file documented as of this encounter Miscellaneous Notes * Telephone Encounter - Doris Frazier LPN - 07/27/2024 11:53 AM EDT Message sent * Telephone Encounter - Crow Ocho[place] PA-C - 07/27/2024 11:27 AM EDT Please advise that Hep B titer is negative. Will need Hep B vaccine series. All other titers are positive. documented in this encounter Plan of Treatment Upcoming Encounters Date Type Department Care Team (Late st Contact Info) Description 08/25/2024 1:00 PM EDT Office Visit Allergy/Immunology State [facility] [address] [place] [address] Stoney Brown MD [address] [place] [address] Health Maintenance Due Date Last Done Comments [...] 12/01/2019, 11/18/2018, Additional history exists COVID-19 Vaccine (1 - 2022-2 4 season) 2024 Influenza Vaccine (FLU shot) (#1) 2024 01/12/2020, 01/12/2020, 09/10/2015, Additional history exists Gonorrhea / Chlamydia Screen 01/14/202511/2023, 11/19/2023, 03/18/2023, Additional history exists Depression Monitoring 07/25/2025 07/25/2024 DTap/Tdap Vaccines (6 - Td o r Tdap) 09/10/2025 09/10/2015, 08/25/2005, 07/02/2004, Additional history exists Hepatitis B Vaccine Completed 04/30/2005, 01/09/2005, 02/20/2004, Additional history exists MENINGOCOCCAL (MENACTRA/MENVEO) Completed , 07/13/2017 documented as of this encounter Medical Devices Not on filedocumented as of this encounter
--- OUTSIDE RECORDS SUMMARY | 2024-10-24 08:16 | External Medical Summary | Summary of Care ---
Author Name Unknown Organization [facility] Address [address] [place] [address] Phone [phone] Care Team Providers Care Medical Lab Technician Name Role Phone Unavailable Primary Care Provider Unavailabl e Reason for Visit * Reason Comments TB Test Reading Encounter Details Date Type Department Care Team (Late st Contact Info) Description 08/05/2024 3:40 PM EDT Nurse Only Ancillary [address], [place] [address] [place], [place] [id number] [place], Nurse Fp [address] [place] [address] TB Test Reading Allergies Active Allergy Reactions Criticality Noted Date Comments Dust 07/25/2024 Penicillin G 10/27/2017 hives documented as of this encounter (statuses as of 08/05/2024) Medications Medication Sig Dispensed Refills Start Date [...] as of this encounter (statuses as of 08/05/2024) Active Problems Problem Noted Date Diagnosed Date Abnormal uterine bleeding (AUB) 11/02/2023 Moderate episode of recurrent major depressive d isorder 04/19/2021 CAMILA (generalized anxiety disorder) 11/18/2018 Mild scoliosis 10/27/2017 Exercise-induced asthma documented as of this encounter (statuses as of 08/05/2024) Resolved Problems Problem Noted Date Diagnosed Date Resolved Date Obesity due to excess calori es without serious comorbidity with body mass index (BMI) in 95th to 98th percentile for age in pediatric patient 10/27/2017 07/15/2019 Bronchospasm, exercise-induced 10/27/2017 10/27/2017 documented as of this encounter (statuses as of 08/05/2024) Immunizations Name Administration Dates Next Due DTaP [...] No 10/15/2023 Does the household have a [facility] source of income? (Household - for ages [...] State Don Carreno [address] [place] [address] Stoney Brown MD [address] [place] [address] Health Maintenance Due Date Last Done Comments [...]
--- OUTSIDE RECORDS SUMMARY | 2024-10-24 08:16 | External Medical Summary ---
Author Name Unknown Address Unknown Organization K01:[facility] - [address] [place] [address] Laboratory Report Ordering Provider Test Date Status ZANZURI 07/26/2024 11:48:08 Final Observation Date Value Abnormality Reference (Units ) Status Rubella virus IgG Ab [Presence] in Serum 07/26/2024 11:48:08 Positive Abnormal Negative Final A positive result is consist ent with having had rubella virus or vaccination. [place] [facility] [place] [address] [place] [address]
--- OUTSIDE RECORDS SUMMARY | 2024-10-24 08:16 | External Medical Summary ---
Author Name Unknown Address Unknown Organization K01:[facility] [place] [address] [place] [address] Laboratory Report Ordering Provider Test Date Status ZURI ZULUAGA 07/26/2024 11:48:08 Final Observation Date Value Abnormality Reference (Units) Status Hepatitis B virus surface Ab [Units/volume] in Serum or Plasma by Immunoassay 07/26/2024 11:48:08 <3.5 (mIU/mL) Final Hepatitis B virus surface Ab [Presence] in Serum by Immunoassay 07/26/2024 11:48:08 Negative Final HEPATITIS B SURFACE ANTIBODY, INTERPRETATION 07/26/2024 11:48:08 NOT immune to Hepatitis B Virus Final POSITIVE: >=11.5 mIU/mL
INDETERMINATE: 8.5-<11.5 mIU/mL
NEGATIVE: <8.5 mIU/mL Performing Location [facility] [place] [address] [place] [address]
--- OUTSIDE RECORDS SUMMARY | 2024-10-24 08:16 | External Medical Summary | Summary of Care ---
Author Name Unknown Organization [facility] Address [address] [place] [address] Phone [phone] Care Team Providers Care Hall Porter Name Role Phone Unavailable Primary Care Provider Unavailabl e Reason for Visit * Reason Comments Outpatient Testing Encounter Details Date Type Department Care Team (Late st Contact Info) Description 07/26/2024 11:40 AM EDT Laboratory Laboratory [facility] [place] [address] [place] [id number] [facility] [address] [place] [address] Well adult exam Allergies Active Allergy Reactions Criticality Noted Date Comments Dust 07/25/2024 Penicillin G 10/27/2017 hives documented as of this encounter (statuses as of 07/26/2024) Medications Medication Sig Dispensed Refills Start Date [...] as of this encounter (statuses as of 07/26/2024) Active Problems Problem Noted Date Diagnosed Date Abnormal uterine bleeding (AUB) 11/02/2023 Moderate episode of recurrent major depressive d isorder 04/19/2021 CAMILA (generalized anxiety disorder) 11/18/2018 Mild scoliosis 10/27/2017 Exercise-induced asthma documented as of this encounter (statuses as of 07/26/2024) Resolved Problems Problem Noted Date Diagnosed Date Resolved Date Obesity due to excess calori es without serious comorbidity with body mass index (BMI) in 95th to 98th percentile for age in pediatric patient 10/27/2017 07/15/2019 Bronchospasm, exercise-induced 10/27/2017 10/27/2017 documented as of this encounter (statuses as of 07/26/2024) Immunizations Name Administration Dates Next Due DTaP [...] pur e alcohol) PHQ-2 Answer Date Recorded PHQ-2 Score 0 01/12/2020 Hunger Vital Sign Answer Date Recorded Within [...] 10/15/2023 Does the household have a re lar source of income? (Household - for ages [...] PM EDT Office Visit Allergy/Immunology [facility] [place] [address] [facility] [place] [address] Stoney Brown MD [address] [place] [address] Pending Results Name Type Priority Associated Diagnoses Date /Time RUBELLA IGG ANTIBODY Lab Routine Well adult exam 07/26/2024 11:48 AM EDT RUBEOLA (MEASLES) IGG ANTIBODY Lab Routine Well adult exam 07/26/2024 11:48 AM EDT HEPATITIS B SURFACE ANTIBODY Lab Routine Well adult exam 07/26/2024 11:48 AM EDT MUMPS IGG ANTIBODY Lab Routine Well adult exam 07/26/2024 11:48 AM EDT VARICELLA-ZOSTER VIRUS ANTIBODY, IGG Lab Routine Well adult exam 07/26/2024 11:48 AM EDT Health Maintenance Due Date Last Done Comments [...] as of this encounter Visit Diagnoses Diagnosis Well adult exam Routine general medical examination at a health care facility documented in this encounter
--- OUTSIDE RECORDS SUMMARY | 2024-10-24 08:16 | External Medical Summary ---
Author Name Unknown Address Unknown Organization K01:[facility] [place] [address] [place] [address] Laboratory Report Ordering Provider Test Date Status ZURI ZULUAGA 07/26/2024 11:48:08 Final Observation Date Value Abnormality Reference (Units ) Status Mumps virus IgG Ab [Presence] in Serum by Immunoassay 07/26/2024 11:48:08 Positive Abnormal Negative Final A positive result is consist ent with having had mumps virus or vaccination. Performing Location [facility] [place] [address] [place] [address]
--- OUTSIDE RECORDS SUMMARY | 2024-10-24 08:16 | External Medical Summary | Summary of Care ---
Author Name Unknown Organization [facility] Address [address] [place] [address] Phone [phone] Care Team Providers Care Construction Supervisor/Carpenter Name Role Phone Unavailable Primary Care Provider Unavailabl e Reason for Visit * Reason Comments TB Test Reading Encounter Details Date Type Department Care Team (Late st Contact Info) Description 07/27/2024 4:50 PM EDT Nurse Only Ancillary [address], [place] [address] [place], [place] [id number] [place], Nurse Fp [address] [place] [address] TB Test Reading Allergies Active Allergy Reactions [...] below, 2-Dose 04/18/2008,03/22/2007 Hepatitis B, 0-19 yrs 04/30/2005,2004,02/20/2004,12/14 IPV - Polio Virus Vaccine (Inact) 2016,09/27/2004,04/30/2004,02/19 [...] PM EDT Office Visit Allergy/Immunology [facility] [place] [address] [place] [address] Stoney Brown MD 200 [facility] [address] Health Maintenance Due Date Last Done Comments [...]
--- OUTSIDE RECORDS SUMMARY | 2024-10-24 08:16 | External Medical Summary | Summary of Care ---
Author Name Unknown Organization [facility] Address [address] [place] [address] Phone [phone] Care Team Providers Care Bin Piler Name Role Phone Unavailable Primary Care Provider Unavailabl e Reason for Visit * Reason Comments TB Test Reading Encounter Details Date Type Department Care Team (Late st Contact Info) Description 07/27/2024 4:50 PM EDT Nurse Only Ancillary [address], [place] [address] [place], [place] [phone] [place], Nurse Fp [address] [place] [address] TB Test Reading Allergies Active Allergy Reactions [...] PM EDT Office Visit Allergy/Immunology [facility] [place] [address] [facility] [place] [address] [place] [address] Stoney Brown MD [address] [facility] [place] [address] Health Maintenance Due Date Last Done Comments [...]
--- OUTSIDE RECORDS SUMMARY | 2024-10-24 08:16 | External Medical Summary | Summary of Care ---
Author Name Unknown Organization [facility] Address [address] [place] [address] Phone [phone] Care Team Providers Care Application Analyst Name Role Phone Unavailable Primary Care Provider Unavailabl e Encounter Details Date Type Department Care Team (Late st Contact Info) Description 07/27/2024 Telephone Family Practice [facility] [place] [address] [facility] [place] [address] Crow [facility] [address] [facility] [address] Allergies Active Allergy Reactions Criticality [...] encounter Miscellaneous Notes * Telephone Encounter - Crow Ochoa PA-C - 07/27/2024 11:27 AM EDT Please advise that Hep B titer is negative. Will need Hep B vaccine series. All other titers are positive. documented in this encounter Plan of Treatment Upcoming Encounters Date Type Department Care Team (Late st Contact Info) Description 08/25/2024 1:00 PM EDT Office Visit Allergy/Immunology [place] [address] [place] [address] Stoney Brown MD [address] [place] [address] Health Maintenance Due Date Last Done Comments [...] 02/20/2004, Additional history exists MENINGOCOCCAL (MENACTRA/MENVEO) Completed 0, 07/13/2017 documented as of this encounter Medical Devices Not on filedocumented as of this encounter
--- OUTSIDE RECORDS SUMMARY | 2024-10-24 08:17 | External Medical Summary | Summary of Care ---
Author Name Unknown Organization [facility] Address [address] [place] [address] Phone [phone] Care Team Providers Care Campaign Analyst Name Role Phone Unavailable Primary Care Provider Unavailabl e Reason for Referral * Evaluate & Treat - Unlimited Visits (Within 10 days (routine)) - Pending Review Specialty Diagnoses / Procedures Referred By Kulwant roche Referred To Contact Allergy & Immunology / Allergy and Immunology Diagnoses Allergy, subsequent encounter Crow Ochoa PA-C [address] [place] [address] Referral ID Status Reason Start Date Expiration Date Visits Requested Visits Authorized [id number] Pending Review Specialty Services Required 07/25/[phone] Question Answer Referral Priority Within 10 days (routine) Where should this appointment be scheduled? [facility] For what condition is the patient being referred? Allergic Rhinitis/Allergic Conjunctivitis/Chronic Sinusitis/Nasal Polyps Reason for Visit * Reason Comments Physical-Exam Pt reports today for a school physical (form). Pt reports with low grade fever, sinus congestion, sinus drainage, sneezing, cough/fits. Had cold sx for about a week, worsening since yesterday, also requesting a referral to an pillowcase cutter, requesting a school note for today and possibly tomorrow. Not taking medications due to being out of them and not able to refill due to needing to come in for a routine visit. Encounter Details Date Type Department Care Team (Late st Contact Info) Description 07/25/2024 4:20 PM EDT [facility] [place], [place] [address] [place] [address] Crow Ochoa PA-C [address] [place] [address] Bronchitis*; Exercise-induced asthma; CAMILA (generalized anxiety disorder); Grief reaction; Moderate episode of recurrent major depressive disorder (HCC); Well adult exam; Allergy, subsequent encounter; Sinus congestion Allergies Active Allergy Reactions Criticality Noted Date Comments Dust 07/25/2024 Penicillin G 10/27/2017 hives documented as of this encounter (statuses as of 07/25/2024) Medications Medication Sig Dispensed Refills Start Date End Date Status Mirena (52 MG) 20 MCG/DAY Intrauterine Intrauterine Device (Levonorgestrel) Insert 1 Each into uterus once. Active Albuterol Sulfate 108 (90 Base) MCG/ACT Inhalation Aerosol Powder Breath ActivatedIndicatio ns:Exercise-induce d asthma Inhale 2 Puffs by mouth every 6 hours as needed for Shortness of Breath or Wheezing. 1 Each 3 07/25/2024 Active hydrOXYzine HCl 25 MG Oral TabletIndications: CAMILA (generalized anxiety disorder),Grief reaction Take 1 Tablet [...] daily until gone 6 Tablet 07/25/2024 Active Albuterol Sulfate 108 (90 Base) MCG/ACT Inhalation Aerosol Powder Breath ActivatedIndicatio ns:Exercise-induce d asthma Inhale 2 Puffs by mouth every 6 hours as needed for Shortness of Breath or Wheezing. 1 Each 3 01/29/2021 07/25/2024 Discontinue d(Refill) Sertraline HCl 25 MG Oral Tablet (Zoloft) Take 1 Tablet by mouth in the morning. 30 Tablet 1 05/05/2023 07/25/2024 Discontinue d(Refill) hydrOXYzine HCl 25 MG Oral TabletIndications: CAMILA (generalized anxiety disorder),Grief reaction Take 1 Tablet by mouth 3 times a day as needed for Anxiety. 20 Tablet 1 05/05/2023 07/25/2024 Discontinue d(Refill) documented as of this encounter (statuses as of 07/25/2024) Active Problems Problem Noted Date Diagnosed Date Abnormal uterine bleeding (AUB) 11/02/2023 Moderate episode of recurrent major depressive d isorder 04/19/2021 CAMILA (generalized anxiety disorder) 11/18/2018 Mild scoliosis 10/27/2017 Exercise-induced asthma documented as of this encounter (statuses as of 07/25/2024) Resolved Problems Problem Noted Date Diagnosed Date Resolved Date Obesity due to excess calori es without serious comorbidity with body mass index (BMI) in 95th to 98th percentile for age in pediatric patient 10/27/2017 07/15/2019 Bronchospasm, exercise-induced 10/27/2017 10/27/2017 documented as of this encounter (statuses as of 07/25/2024) Immunizations Name Administration Dates Next Due DTaP [...] Meningococcal MCV4O Conjugat e Vaccine (Menveo) 01/12/2020 Pneumococcal Conjugate Vacc, 13 Valent (Prevnar) 01/12/2005,07/02/2004,04/30/2004,02/19 [...] Smoking Tobacco: Former Vaporizer Smokeless Tobacco: Never Tobacco Cessation:Counseling Given: No Alcohol Use Standard Drinks/Week Comments No 0 [...] on file documented as of this encounter Last Filed Vital Signs Vital Sign Reading Time Taken Comments Blood Pressure 116/82 07/25/2024 4:04 PM EDT Pulse 72 07/25/2024 4:04 PM EDT Temperature 37.6 C (99.6 F) 07/25/2024 4:04 PM ED T Respiratory Rate 20 07/25/2024 4:04 PM EDT Oxygen Saturation 99% 07/25/2024 4:04 PM EDT Inhaled Oxygen Concentration - - Weight 92.2 kg (203 lb 3.2 oz) 07/25/2024 4:04 P M EDT Height 163.2 cm (5' 4.25") 07/25/2024 4:04 PM ED T Body Mass Index 34.61 07/25/2024 4:04 PM EDT documented in this encounter Progress Notes * Stephanie Martínez CCMA - 07/25/2024 4:14 PM EDT Chief Complaint Patient presents with Physical-Exam Pt reports today for a school physical (form). Pt reports with low grade fever, sinus congestion, sinus drainage, sneezing, cough/fits. Had cold sx for about a week, worsening since yesterday, also requesting a referral to an pillowcase cutter, requesting a school note for today and possibly tomorrow. Not taking medications due to being out of them and not able to refill due to needing to come in for a routine visit. documented in this encounter Nursing Notes * Stephanie Martínez CCMA - 07/25/2024 4:02 PM EDT Chief Complaint Patient presents with Physical-Exam Pt reports today for a school physical. Pt reports with low grade fever, sinus congestion, sinus drainage, sneezing, cough/fits. Had cold sx for about a week, worsening since yesterday, also requesting a referral to an pillowcase cutter, requesting a school note for today and possibly tomorrow. Not taking medications due to being out of them and not able to refill due to needing to come in for a routine visit. documented in this encounter Plan of Treatment Upcoming Encounters Date Type Department Care Team (Late st Contact Info) Description 08/25/2024 1:00 PM EDT Office Visit Allergy/Immunology [facility] [address] [facility] [place] [address] Stoney Brown MD [address] [facility] [place] [address] Scheduled Orders Name Type Priority Associated Diagnoses Orde r Schedule RUBELLA IGG ANTIBODY Lab Routine Well adult exam Expected: 07/25/2024, Expires: 07/25/2025 RUBEOLA (MEASLES) IGG ANTIBODY Lab Routine Well adult exam Expected: 07/25/2024, Expires: 07/25/2025 HEPATITIS B SURFACE ANTIBODY Lab Routine Well adult exam Expected: 07/25/2024, Expires: 07/25/2025 MUMPS IGG ANTIBODY Lab Routine Well adult exam Expected: 07/25/2024, Expires: 07/25/2025 VARICELLA-ZOSTER VIRUS ANTIBODY, IGG Lab Routine Well adult exam Expected: 07/25/2024, Expires: 07/25/2025 Scheduled Referrals Name Type Priority Associated Diagnoses Orde r Schedule ALLERGY REFERRAL OP Referral Within 10 da ys (routine) Allergy, subsequent encounter Ordered: 07/25/2024 Health Maintenance Due Date Last Done Comments [...] as of this encounter Visit Diagnoses Diagnosis Bronchitis- Primary Bronchitis, not specified as acute or chronic Exercise-induced asthma Exercise induced bronchospasm CAMILA (generalized anxiety disorder) Generalized anxiety disorder Grief reaction Adjustment disorder with depressed mood Moderate episode of recurrent major depressive disorder (HCC) Well adult exam Routine general medical examination at a health care facility Allergy, subsequent encounter Sinus congestion Other diseases of nasal cavity and sinuses documented in this encounter
--- OUTSIDE RECORDS SUMMARY | 2024-10-24 08:17 | External Medical Summary | Summary of Care ---
Author Name Unknown Organization [facility] Address [address] [place] [address] Phone [phone] Care Team Providers Care Adjunct Instructor Chemistry Name Role Phone Unavailable Primary Care Provider Unavailabl e Reason for Referral * Evaluate & Treat - Unlimited Visits (Within 10 days (routine)) - Pending Review Specialty Diagnoses / Procedures Referred By Kulwant roche Referred To Contact Allergy & Immunology / Allergy and Immunology Diagnoses Allergy, subsequent encounter Crow Ochoa PA-C [address] [place] [address] Referral ID Status Reason Start Date Expiration Date Visits Requested Visits Authorized [id number] Pending Review Specialty Services Required 07/25/2024 999 [...] yesterday, also requesting a referral to an manufacturing applications engineer, requesting a school note for today and possibly tomorrow. Not taking medications due to being out of them and not able to refill due to needing to come in for a routine visit. Encounter Details Date Type Department Care Team (Late st Contact Info) Description 07/25/2024 4:20 PM EDT Office Visit Family [facility] [place], [place] [address] [place] [address] Crow Ochoa PA-C [address] [place] [address] Encounter for screening for respiratory tuberculosis*; Bronchitis; Exercise-induced asthma; CAMILA (generalized anxiety disorder); Grief [...] No 10/15/2023 Does the household have a [facility] source of income? (Household - for [...] kg (203 lb 3.2 oz) 07/25/2024 4:04 PM EDT Height 163.2 cm (5' 4.25") 07/25/2024 4:04 PM ED T Body Mass Index 34.61 07/25/2024 4:04 PM EDT documented in this encounter Progress Notes * Stephanie Cameron CCMA - 07/25/2024 5:32 PM EDT Pre-Administration Time Out Procedure Performed: Yes Patient Identified (Ask Name/Date of ): Yes Does the patient have a fever greater than 101 degrees today? No Patient allergic to latex? No Has the patient ever fainted after receiving an injection? No VFC Stock: No Injection(s) verified: Yes, Injection Name: PPD Verified Side and Site: Yes Verified Shot(s) with Parent(s)/Patient: Yes * Stephanie Cameron CCMA - 07/25/2024 4:14 PM EDT Chief Complaint Patient presents with Physical-Exam Pt reports today for a school physical (form). Pt reports with low grade fever, sinus congestion, sinus drainage, sneezing, cough/fits. Had cold sx for about a week, worsening since yesterday, also requesting a referral to an manufacturing applications engineer, requesting a school note for today and possibly tomorrow. Not taking medications due to being out of them and not able to refill due to needing to come in for a routine visit. documented in this encounter Nursing Notes * Stephanie Cameron CCMA - 07/25/2024 4:02 PM EDT Chief Complaint Patient presents with Physical-Exam Pt reports today for a school physical. Pt reports with low grade fever, sinus congestion, sinus drainage, sneezing, cough/fits. Had cold sx for about a week, worsening since yesterday, also requesting a referral to an manufacturing applications engineer, requesting a school note for today and possibly tomorrow. Not taking medications due to being out of them and not able to refill due to needing to come in for a routine visit. documented in this encounter Miscellaneous Notes * Addendum Note - Stephanie Cameron CCMA - 07/25/2024 5:34 PM EDTAddended by: STEPHANIE CAMERON on: 07/25/2024 05:34 PM Modules accepted: Orders documented in this encounter Plan of Treatment Upcoming Encounters Date Type Department Care Team (Late st Contact Info) Description 08/25/2024 1:00 PM EDT Office Visit Allergy/Immunology [facility] [place] [address] [facility] [place], [place] [address] Stoney Brown MD [address] [facility] [place] [address] Scheduled Orders Name Type Priority Associated Diagnoses [...] as of this encounter Visit Diagnoses Diagnosis Encounter for screening for respiratory tuberculosis- Primary Screening examination for pulmonary tuberculosis Bronchitis Bronchitis, not specified as acute or chronic [...]
[2024-10-24] MEDS: ONDANSETRON INJ 2 MG/ML 2 ML VIAL IV PRN (09:45)
[2024-10-24] MEDS: SODIUM CHLORIDE 0.9% 1,000 ML IV SCH (09:45)
[2024-10-24] MEDS: ACETAMINOPHEN 1,000 MG/100 ML VIAL IV PRN (09:45)
--- NOTE | 2024-10-24 10:06 | Electrocardiogram Report ---
Test Reason : Blood Pressure : */* mmHG Vent. Rate : 124 BPM Atrial Rate : 124 BPM P-R Int : 166 ms QRS Dur : 80 ms QT Int : 292 ms P-R-T Axes : 45 62 9 degrees QTcB Int : 419 ms Sinus tachycardia Diffuse Minor Nonspecific T wave abnormality Abnormal ECG No previous ECGs available Confirmed by Jose Coronado ([id number]) on 10/24/2024 10:05:47 AM Referred By: REFERRED SELF Confirmed By: Jose Coronado
[2024-10-24 10:36] LABS: Basophils # (auto) 0.02 K/uL (0.00-0.20); Basophils % (auto) 0.1 %; Eosinophils # (auto) 0.03 K/uL (0.00-0.50); Eosinophils % (auto) 0.2 %; Hematocrit (blood only) 33.2 % (37.0-47.0); Hemoglobin 10.6 g/dl (12.0-16.0); Immature Granulocytes # (auto) 0.05 K/uL (0.01-0.20); Immature Granulocytes % (auto) 0.4 %; Lymphocytes # (auto) 1.02 K/uL (1.20-3.40); Lymphocytes % (auto) 7.3 %; Mean Corpuscular Hemoglobin 25.1 pg (25.0-34.0); Mean Corpuscular Hgb Conc 31.9 g/dL (32.0-36.0); Mean Corpuscular Volume 78.5 fL (80.0-100.0); Mean Platelet Volume 10.3 fL (9.4-12.4); Monocytes # (auto) 1.01 K/uL (0.11-0.59); Monocytes % (auto) 7.2 %; Neutrophils # (auto) 11.91 K/uL (1.40-6.50); Neutrophils % (auto) 84.8 %; Platelet Count 224 K/uL (130-400); RDW Standard Deviation 48.4 fL (36.4-46.3); Red Blood Count 4.23 M/uL (4.20-5.40); White Blood Count 14.04 K/ul (4.8-10.8)
[2024-10-24 10:53] LABS: Albumin Globulin Ratio 1.5 (0.9-2); Albumin Level 3.7 gm/dl (3.4-5.0); Bilirubin,Total 1.7 mg/dl (0.2-1.0); Calcium 8.4 mg/dl (8.6-10.3); Globulin 2.5 gm/dl (2.5-4.0); Potassium 3.8 mmol/L (3.5-5.1); Total Protein 6.2 gm/dl (6.0-8.3)
[2024-10-24] MEDS: CEFEPIME 2000MG 2,000 MG/20 ML SYR IV SCH (11:51)
[2024-10-24] MEDS: IBUPROFEN 600 MG TAB PO STA (15:41)
[2024-10-24] MEDS: DOXYCYCLINE HYCLATE 100 MG in DEXTROSE 5% MINI-B 100 ML IV SCH (15:43)
[2024-10-24] MEDS: ACETAMINOPHEN 1,000 MG/100 ML VIAL IV SCH (17:10)
[2024-10-24] MEDS: KETOROLAC TROMETHAMINE 15 MG/ML VIAL IV ONE (17:10)
[2024-10-24] MEDS: PROCHLORPERAZINE 5 MG in SYRINGE 4 ML IV PRN (17:34)
[2024-10-24] MEDS ORDERED: KETOROLAC TROMETHAMINE 15 MG/ML VIAL IV PRN (23:10)
--- NOTE | 2024-10-25 07:15 | Hospitalist Progress Note ---
Date of Service October 25, 2024 Assessment & Plan (1) Sepsis: Plan: Patient is a 18 year old female with no significant PMH who presented to the hospital with back pain, SOB, fever, chills, sore throat, achiness. Overall, she has improved and is ready to begin discharge. Sepsis w/ Undetermined Source (Resolved): - Ddx includes viral infection vs bronchitis/pneumonitis vs meningitis At this time, viral infection considered most likely and expected to resolve spontaneously Will continue empiric Abx pending cultures - Procal negative, Lactate negative, MRSA nares negative, -No Preliminary growth on blood culture, Urine culture pending - CXR indicating bronchitis/pneumonitis, CTAP negative - Tick borne illness screenings negative, Biofire negative, [place] screen negative/EBV pending Peripheral smear w/o evidence of anaplasma or Babesia - IVF 2.5 L in ED, restarted 1.5 maintenance in AM 12/9 - Continue broad spectrum Abx w/ Cefepime & Doxycycline - Continue Tylenol and Zofran for symptom control Neck Pain/Headache - No point tenderness in cervical, thoracic, or lumbar spine - Negative meningeal signs - Low suspicion for meningitis at this time, continue to follow Microcytic Anemia - Noted to be 2/2 iron deficiency anemia - Plan for outpatient iron panel/ferritin testing when not acutely ill Epigastric Pain: -Discharge with 2 weeks of PPI and follow up/establish with PCP. Plan Fluids: 2.5 L NSS given. Nutrition: Clear diet, advance as tolerate Code status: Full code DVT ppx: Low risk may consider if extended hospital stay, encourage ambulation as tolerated Dispo: PCU/telemetry Admission and Anticipated Discharge Date Admission Date: October 24, 2024 Subjective Patient is a 18 year old female with no significant PMH who presented to the hospital with back pain, SOB, fever, chills, sore throat, achiness. She states that her symptoms began on Thursday (10/23/24) and within 30-60 minutes, she got super sick with chills, pain throughout body and especially lower back. She states the back pain was a 7-8/10. She states no sick contacts, no recent travel, no recent insect or tick bites. New Events: -Yesterday evening she had an acute event of stabbing abdominal pain and 4-5 episodes of vomiting. She did not her vomit appeared red but had just eaten red Jello. -She reports slight epigastric pain at this time. Review of Systems Review of Systems: Constitutional Denies fever, chills, malaise HEENT Denies head pain, headaches. Denies eye pain, vision loss/changes, blurry vision, double vision. Denies ear pain and hearing loss. Denies sore throat or sore neck or sinus pain. Respiratory Denies SOB, cough, sputum production, hemoptysis CV Denies chest pain, heart palpitations, tachycardia, bradycardia, edema GI States slight epigastric pain. Had vomiting last night. Denies constipation, diarrhea, nausea. Denies dysuria, increased urinary frequency, hematuria MSK Denies joint pain, muscle pain, decreased ROM, Neuro Denies altered mental status, slurred speech, numbness or tingling Psych Denies symptoms of depression or anxiety. Physical Exam Physical Exam: Constitutional: well-appearing, moderate acute distress HEENT: NCAT, posterior pharynx slightly erythematous without exudate CV: regular rhythm, no murmur appreciated, extremities well-perfused, no LE edema Resp: CTAB, no wheezes/rales/rhonchi appreciated, No accessory muscle use GI: Slightly tender at epigastrium. soft, nondistended, nontender, BS normoactive MSK: No tenderness along spinous process or paraspinous. negative brudzinski Skin: warm, dry, no rash appreciated Neuro: alert, oriented, no focal neurologic deficit appreciated Results & Data Results & Data Vital Signs (Past 12 Hours) Vital Signs Temp Pulse Pulse Resp BP Pulse Ox O2 Del Method 10/25/24 04:17 36.6 C 88 16 112/63 98 Room Air 10/25/24 00:37 37.0 C 10/24/24 23:25 72 Resident Activity Tracking Resident Involvement: Resident Care Provided Care Provided: Adult Hospital Medicine
[2024-10-25] MEDS: PANTOprazole 40 MG/10 ML SYR IV ONE (10:28)
[2024-10-25 10:44] LABS: Basophils # (auto) 0.03 K/uL (0.00-0.20); Basophils % (auto) 0.3 %; Eosinophils # (auto) 0.13 K/uL (0.00-0.50); Eosinophils % (auto) 1.4 %; Hematocrit (blood only) 33.6 % (37.0-47.0); Hemoglobin 10.6 g/dl (12.0-16.0); Immature Granulocytes # (auto) 0.03 K/uL (0.01-0.20); Immature Granulocytes % (auto) 0.3 %; Lymphocytes # (auto) 1.03 K/uL (1.20-3.40); Lymphocytes % (auto) 11.2 %; Mean Corpuscular Hemoglobin 25.2 pg (25.0-34.0); Mean Corpuscular Hgb Conc 31.5 g/dL (32.0-36.0); Mean Corpuscular Volume 79.8 fL (80.0-100.0); Mean Platelet Volume 10.5 fL (9.4-12.4); Monocytes # (auto) 0.61 K/uL (0.11-0.59); Monocytes % (auto) 6.6 %; Neutrophils # (auto) 7.39 K/uL (1.40-6.50); Neutrophils % (auto) 80.2 %; Platelet Count 231 K/uL (130-400); RDW Standard Deviation 49.4 fL (36.4-46.3); Red Blood Count 4.21 M/uL (4.20-5.40); White Blood Count 9.22 K/ul (4.8-10.8)
[2024-10-25 11:08] LABS: Albumin Globulin Ratio 1.5 (0.9-2); Albumin Level 3.8 gm/dl (3.4-5.0); BUN Creatinine Ratio 13.4 (10-20); Bilirubin,Total 1.8 mg/dl (0.2-1.0); C Reactive Protein 10.27 mg/dl (0-0.5); Calcium 8.9 mg/dl (8.6-10.3); Creatinine Clr Calc Pharmacy 141.3 ml/min; Globulin 2.6 gm/dl (2.5-4.0); Potassium 3.7 mmol/L (3.5-5.1); Total Protein 6.4 gm/dl (6.0-8.3)
--- NOTE | 2024-10-25 11:51 | Discharge Summary ---
Date of Service October 25, 2024 Admission HPI Per Admitting Provider Patient is a 18-year-old female with no significant past medical history who presents to the hospital with back pain, sore throat, chills, shortness of breath, fever, achiness. Patient states that the symptoms started approximately 6 to 7 PM and came on all of a sudden. Patient states that the pain started with her back. The pain is over her bilateral lower back more so on the left than right. She then started to have a fever and chills and pain all over. She then developed a headache and felt like pressure behind her eyes. Denies any cough. Does state that she also has a sore throat that is very mild. She also states that her lips feel funny. Denies any recent travel or exposure to infectious etiology. Denies IV drug use. Denies any rash. Admission Exam Per Admitting Provider Constitutional: well-appearing, moderate acute distress HEENT: NCAT, no conjunctival injection, posterior pharynx slightly erythematous without exudate CV: regular rhythm, no murmur appreciated, extremities well-perfused, no LE edema Resp: CTABL, no wheezes/rales/rhonchi appreciated, no increased work of breathing GI: soft, nondistended, nontender, BS normoactive MSK: Bilateral lower back tenderness, no midline tenderness,negative brudzinski Skin: warm, dry, no rash appreciated Neuro: alert, oriented, no focal neurologic deficit appreciated Principal Diagnosis Sepsis Presumed Pulmonary/Viral source Discharge Exam Constitutional: well-appearing, moderate acute distress HEENT: NCAT, posterior pharynx slightly erythematous without exudate CV: regular rhythm, no murmur appreciated, extremities well-perfused, no LE edema Resp: CTAB, no wheezes/rales/rhonchi appreciated, No accessory muscle use GI: Slightly tender at epigastrium. soft, nondistended, nontender, BS normoactive MSK: No tenderness along spinous process or paraspinous. negative brudzinski Skin: warm, dry, no rash appreciated Neuro: alert, oriented, no focal neurologic deficit appreciated Discharge Data Allergies Allergy/AdvReac Type Severity Reaction Status Date / Time Penicillins AdvReac Rash Verified 10/24/24 03:08 Consultations 10/24/24 02:50 ED Decision to Admit Stat Ordered Studies 10/24/24 00:52 CT Abd and Pelvis [CT abd pelvis IV con only] Stat Hospital Course (1) Sepsis: (2) Pneumonitis: Plan Patient is a 18 year old female with no significant PMH who presented to the hospital with back pain, SOB, fever, chills, sore throat, achiness. Overall, she has improved and is ready to begin discharge. Sepsis w/ Undetermined Source (Resolved): - Ddx includes viral infection vs bronchitis/pneumonitis vs meningitis At this time, viral infection considered most likely and expected to resolve spontaneously Procal negative, Lactate negative, MRSA nares negative Will discontinue empiric Abx d/t negative blood cultures - CXR indicating bronchitis/pneumonitis, CTAP negative - Tick borne illness screenings negative, Biofire negative, [place] screen negative/EBV pending Peripheral smear w/o evidence of anaplasma or Babesia - Can continue Tylenol PRN for supportive care - Continue to encourage PO hydration with at least 64oz of water daily Neck Pain/Headache (Resolved) - No point tenderness in cervical, thoracic, or lumbar spine - Negative meningeal signs - Low suspicion for meningitis at this time, continue to follow Microcytic Anemia - Noted to be 2/2 iron deficiency anemia - Plan for outpatient iron panel/ferritin testing when not acutely ill Consider iron supplementation as outpatient with PCP Epigastric Pain: - Suspect gastritis due to viral etiology. - CTAP negative on admission. - Pain resolved with IV pantoprazole. - Discharge with 2 weeks of PPI and follow up w/ PCP in 1 week Plan Fluids: 2.5 L NSS given. Nutrition: Regular Code status: Full code DVT ppx: Low risk may consider if extended hospital stay, encourage ambulation as tolerated Dispo: Home, f/u w/ PCP In 1 week Total Time Total Time Spent Total Time Spent (In Minutes): See attending attestation Discharge Plan Discharge Items Patient Disposition: Home - Self-Care Reason For Visit: LEUKOCYTOSIS, BACK PAIN, PNEUMONITIS Discharge Diagnosis: SIRS+ 2/2 Likely Viral Infection Gastritis Activity: Per Instructions section Non-emergency contact: Primary Care Provider Call non-emergency contact if: you have any medication questions, your symptoms worsen and you have a fever Follow-up/Referrals: Patti Hanley, [Primary Care Provider] - (Follow up within 1 week) Diet: Regular Addtl Attending Provider Instructions: You were admitted to the hospital for headache and back pain with new onset nausea and vomiting. You were found to have a elevated heart rate and white blood cell count on admission, which was concerning for SIRS/Sepsis. A chest x ray was performed which showed potential bronchitis and given your recent upper respiratory symptoms (sore throat, congestion) and rapid onset, this is likely to be caused by a viral infection. Your labs and vitals improved following administration of fluids. You briefly received antibiotics, but these were discontinued when blood cultures resulted as negative. During your admission, you developed epigastric discomfort and indigestion, which resolved with administration of IV Pantoprazole. This supports a diagnosis of gastritis, likely caused by the viral infection. You will be sent home with Omeprazole, please take 20 mg by mouth daily for the next two weeks and follow up with your PCP. Please continue to drink at least 64 ounces of water daily to support continued healing and follow up with your primary care doctor within 1 week of discharge. Pending Studies at Discharge: Yes (EBV) Stand-Alone Forms: My [facility] [employer], Work/School Release, Smoking Cessation Medications and DC Order Prescriptions: New omeprazole 20 mg capsule,delayed release(DR/EC) 20 mg PO DAILY 14 Days Qty: 14 0RF Discharge Orders: Discharge Order (Routine); Ordered 10/25/24 Ordered By: Mone Nugent Admission Data Admit Date/Time: 10/24/24 04:02 Attending Provider: Rubia Montilla Admit Provider: Hitesh Mercado Primary Care Provider: Patti Hanley Other Providers: Leti Girard Other Interventions: Discharge Summary Assessment (RN) Last Done: 10/25/24 14:49 Supervising Physician Co-Signing Physician Notes Attending Physician Supervision Note: I saw the patient with Jens Ruffin and independently interviewed and examined the patient and verified the harris history and physical, reviewed labs and image studies and agree with findings and care plan noted above. Seen this am. Feeling completely back to normal. Had upper abdomen discomfort this am after drinking orange juice - that resolved as well. no fever. AAOx3, abdomen soft/NT/ND, Probable SIRS - WBC elevated. neg procal and lactate. neg viral panel, peripheral smear, strep test. cultures negative. CXR with some infiltrate. Neg CT Abdomen and pelvis -Kept on empiric abx treatment - d/simi on discharge. -presentation possibly due to viral illness. discharged home. Resident Activity Tracking Resident Involvement: Resident Care Provided Care Provided: Adult [facility]
[2024-10-25 12:57] LABS: EBV Nuclear Ag Antibody >600.00 U/mL; Epstein Barr Virus Early Ag Ab <9.00 U/mL
[2024-10-25 14:20] VITALS: PULSE 73
[2024-10-25 14:42] VITALS: BP 130/73; RESP 18; TEMP 97.4; O2SAT 98
== END 2024-10-25 14:45 | disposition home or self-care (01) | DRG 872 ==
LOC: ED 21:56 → EDINP 10-24 04:02 → SUATTDRO 10-24 04:02 → 2E 10-24 04:19